=== PATIENT | female | born 1980 | race Caucasian/White ===

== ENCOUNTER → 2016-09-24 | Outpatient (CLI) | payer OTHER ==
[~2016-09-24] MED LIST: ANUCORT-HC25 MG/SUPP; ATIVAN0.5 M1 PO; DICYCLOMINE HCL20 MG
--- NOTE | ~2016-09-24 | US128 ---
[id number] [address] [address] [id number] O MR#: [id number] Acc #: [id number] NAME: SANJIV MCCARTHY : 1980 SEX: F STUDY DATE/TIME: 09/24/2016 11:06 UNIT: SGUS ROOM: STUDY DESCRIPTION: Thyroid Attending Physician: Walt Saavedra M.D. Referring Physician: Walt Saavedra M.D. Ordering Physician: Walt Saavedra M.D. Primary Care Physician: Walt Saavedra M.D. MEDICAL IMAGING REPORT This report is preliminary unless electronic signature is present. EXAM Thyroid ultrasound 09/24/2016 HISTORY Enlarged thyroid. COMPARISON Thyroid ultrasound 08/28/2014 FINDINGS The isthmus measures 4 mm thickness. The right thyroid lobe measures 1.7 x 2.2 x 5.2 cm. The left thyroid lobe measures 1.8 x 1.7 x 4.3 cm. Thyroid parenchyma appears homogeneous. No cystic or solid nodules are identified. The thyroid gland does not appear frankly hypervascular on Doppler imaging. The right thyroid lobe measures slightly larger than the left. IMPRESSION: No suspicious thyroid nodules. The right lobe measures slightly larger than the left and is slightly larger than on the previous 2014 ultrasound where it measured a maximal 4.6 cm. Dictated by... Olena Niño M.D. THIS IS AN ELECTRONICALLY VERIFIED REPORT Olena Niño M.D. at 09/25/2016 3:53 PM Hyacinth TD: 09/24/2016 16:27 JOB #: [id number] MEDICAL IMAGING REPORT Page 1 of 1
== END | disposition home or self-care (01) ==
LOC: SGUS 11:04
DX: E04.9 Nontoxic goiter, unspecified (principal)
CPT/HCPCS: 76536

== ENCOUNTER → 2016-11-05 | Outpatient (CLI) | payer OTHER ==
--- NOTE | ~2016-11-05 | NM19 ---
[facility] A Service of [facility] & [facility] RADIOLOGY TEXT RESULTS PATIENT: SANJIV MCCARTHY LOCATION: [facility] : [birth year] UNIT #: [id number] AGE: [address]: Deon Godfrey MD SEX: F ORDER DR: [id number] [facility] [address] [place], [place] [address] [id number] O MR#: [id number] Acc #: [id number] NAME: SANJIV MCCARTHY : 1980 SEX: F STUDY DATE/TIME: 11/05/2016 7:29 UNIT: [facility] ROOM: STUDY DESCRIPTION: NM Gastric Emptying Study Attending Physician: Deon Godfrey M.D. Referring Physician: Deon Godfrey M.D. Ordering Physician: Deon oGdfrey M.D. Primary Care Physician: Walt Saavedra M.D. MEDICAL IMAGING REPORT This report is preliminary unless electronic signature is present EXAM Radionuclide gastric emptying scan 11/05/2016 HISTORY Gastroesophageal reflux disease. Bloating, nausea, early satiety, gastroesophageal reflux disease, weight loss unintended, gassy, belching more, generalized abdominal pain. 1 year duration. Bloating, nausea, getting worse over last couple months, constipation, with occasional diarrhea. FINDINGS Following ingestion of 532 mcCi technetium 99m sulfur colloid admixed in scrambled eggs, anterior and posterior views of the abdomen were obtained at 0, 60, 120, 240 minutes post ingestion. Region of interest drawn around stomach and time-activity curve constructed. Percent remaining at time intervals as follows: 60 minutes - 68%, 120 minutes - 17%, 240 minutes - 2%. Percent empty at time intervals as follows: 60 minutes - 22%, 120 minutes - 83%, 240 minutes - 98%. IMPRESSION 1. Two hour solid phase gastric emptying is 83%. Normal is greater than 60%. Four hour solid phase gastric emptying is 98%. Normal is greater than 90%. Dictated by... Brody Ramirez M.D. THIS IS AN ELECTRONICALLY VERIFIED REPORT Brody Ramirez M.D. at 11/06/2016 7:11 PM JSK/rnr STS. [facility] A Service of [facility] & [facility] RADIOLOGY TEXT RESULTS PATIENT: SANJIV MCCARTHY LOCATION: [facility] #: [id number] : 84 UNIT #: [id number] AGE: [address]: Deon Godfrey MD SEX: F ORDER DR: TD: 11/05/2016 18:07 JOB #: [id number] MEDICAL IMAGING REPORT Page 1 of 1 COPY
== END | disposition home or self-care (01) ==
LOC: CNUC 06:47
DX: K21.9 Gastro-esophageal reflux disease without esophagitis (principal)
CPT/HCPCS: 78264; A9541